=== PATIENT | female | born 2000 | race Caucasian/White ===

== ENCOUNTER 2021-03-22 16:27 | Emergency (ER) | payer OTHER, SELFPAY ==
[2021-03-22 16:53] VITALS: BP 112/78; BP 115/56; PULSE 81; PULSE 89; RESP 18; TEMP 36.5; O2SAT 100; BMI 19.7
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
== END 2021-03-22 17:32 | disposition home or self-care (01) ==
LOC: HO.ED 17:22
PROVIDERS: Emergency Provider Internal Medicine
DX: Z04.1 Encounter for examination and observation following transport accident (principal)
CPT/HCPCS: 99282; 99283